=== PATIENT | female | born 1970 | race Caucasian/White ===

== ENCOUNTER → 2016-02-27 | Outpatient (CLI) | payer BC ==
[~2016-02-27] VITALS: Ht 167.6 cm; Wt 67.6 kg
[~2016-02-27] MED LIST: ALPR1TAB2 PO; AMIT10TA6 PO; AMT10T PO; BUPIVACAINE 0.25% 30 ML (SENSORCAINE) VIAL ONE; CHLO1CAP61; CHLO500T4 PO; CPR500T PO; DICY10CA12; ESTR2TAB PO; GABA-486 PO; HYDR-2889 PO; HYDR-34; HYDR12.56 PO; HYDR1CAP2; HYDR2TAB51 GT; HYOS0.1216 PO; HYOS0.378 PO; LEVE750T16; LEVE750T16 PO; LEVE750T5; LEVE750T5 PO; LEVO500T69 PO; LEVO750T6 PO; LIDOCAINE 1% INJ 20 ML (XYLOCAINE) VIAL ONE; LORA-794 PO; LORA0.5T PO; LRT10T; LRT10T PO; MELO7.5T46 PO; METR500T PO; MULT-608 PO; NEBI5TAB8 PO; NITR100C PO; ONDA4TAB11 PO; OXYC-202 PO; OXYC15TA79 PO; POTA-51 PO; PRM50SU PR; TAPE50TA PO; TAPE75TA PO; TRIAMCINOLONE ACET (KENALOG-40) 40 MG/ML 1 ML VIAL ONE; TRM50T PO
--- OUTSIDE RECORDS SUMMARY | 2016-02-27 11:09 | XMS REPORT | Continuity of Care Document ---
Author Author [facility] Organization [facility] Address Unknown Phone Unavailable Care Team Providers Care Film Painter Name Role Phone Johnathon Dewey PCP [phone] Source Comments Some departments are not documenting in the electronic medical record. If you do not see the information that you expected, contact Release of Information in the Health Information Management department at [phone] for further assistance in locating additional records.[facility] Active Allergies and Adverse Reactions Allergen Noted Date Severity Reactions Comments Adhesive Tape-Silicones 02/12/2014 RASH Seasonal Allergies 02/12/2014 EYE IRRITATION, SNEEZING Current Medications Prescription Sig. Disp. Refills Start End Date Status Date levETIRAcetam (KEPPRA) Take 1,500 mg by mouth Active 750 mg tablet twice daily. amitriptyline (ELAVIL) 25 Take 50 mg by mouth at Active mg tablet bedtime daily. nebivolol (BYSTOLIC) 2.5 Take 2.5 mg by mouth Active mg tab tablet daily. nitrofurantoin SR Take 100 mg by mouth Active (MACROBID) 100 mg capsule daily. hydrochlorothiazide Take 12.5 mg by mouth Active (HYDRODIURIL) 12.5 mg tab daily. tablet oxyCODONE (OXY-IR) 15 mg Take 15 mg by mouth every Active tablet 4 hours as needed citalopram (CELEXA) 40 mg Take 40 mg by mouth Active tablet daily. linaclotide (LINZESS) 290 Take by mouth. Active mcg cap ALPRAZolam (XANAX) 1 mg Take 1 mg by mouth at Active tablet bedtime as needed. orphenadrine ER(+) Take 100 mg by mouth Active (NORFLEX) 100 mg tablet twice daily. hyoscyamine (ANASPAZ; Place 125 mcg under Active NULEV; SYMAX FASTABS; tongue every 4 hours as HYOMAX-FT; ED-SPAZ; needed. OSCIMIN) 0.125 mg rapid dissolve tablet DOMPERIDONE (BULK) MISC Use 10 mg as directed. Active Active Problems Problem Noted Date Abdominal pain 02/12/2014 Chronic narcotic use 02/12/2014 H/O meningioma of the brain 02/12/2014 Social History Tobacco Use Types Packs/Day Years Used Date Never Smoker Alcohol Use Drinks/Week oz/Week Comments Yes Last Filed Vital Signs Vital Sign Reading Time Taken Blood Pressure 117/78 02/12/2014 1:15 PM NURSE ANESTHESIA PROGRAM DIRECTOR Pulse 72 02/12/2014 1:15 PM NURSE ANESTHESIA PROGRAM DIRECTOR Temperature 35.9 C (96.7 F) 02/12/2014 1:15 PM NURSE ANESTHESIA PROGRAM DIRECTOR Respiratory Rate 16 02/12/2014 1:15 PM NURSE ANESTHESIA PROGRAM DIRECTOR Height 1.676 m (5' 6") 02/12/2014 1:15 PM NURSE ANESTHESIA PROGRAM DIRECTOR Weight 72.576 kg (160 lb) 02/12/2014 1:15 PM NURSE ANESTHESIA PROGRAM DIRECTOR Body Mass Index 25.84 02/12/2014 1:15 PM NURSE ANESTHESIA PROGRAM DIRECTOR Oxygen Saturation - - Plan of Care Health Maintenance Due Date Last Done Comments Physical (Comprehensive) 04/22/1978 Exam Pertussis Vaccine 04/22/1982 Tetanus Vaccine 04/22/1988 Cervical Cancer Screening 04/22/1992 Influenza Vaccine 10/09/2015 Results from Last 3 Months Not on file
[2016-02-27 11:32] VITALS: BP 121/77
--- NOTE | 2016-02-27 14:03 | Pain Medicine-Procedure ---
Procedure Pre-Op/Post-Op Diagnosis Diagnosis: sacrococcygeal disorder Indications for Operation Hip pain Attending Surgeon Naveen Procedure Date of Service: Feb 27, 2016 Procedure: Flouroscopic guided bilateral sacroiliac joint injection PROCEDURE IN DETAIL: After obtaining informed consent from the patient, the patient's chart was reviewed. The patient was then brought to the procedure room and placed in the prone position. A time out was performed. The back was prepped with antiseptic solution and under fluoroscopic guidance the patient's sacroiliac joint on both sides was identified. Attention was first turned to the right sacroiliac joint injection where 2 mL's of 1% lidocaine was used to anesthetize the skin and then two 22-gauge 3.5 inch spinal needles were inserted and advanced under flouroscopic guidance until they were in the lower 1 /3 of the right sacroiliac joint. Next, attention was then turned to the left sacroiliac joint injection where 2 mL's of 1% lidocaine was used to anesthetize the skin and then two 22-gauge 3.5 inch spinal needles were inserted and advance under flouroscopic guidance until they were in the lower 1/3 of the sacroiliac joint on the left side. After negative aspiration one half male of contrast dye was injected demonstrating good spread throughout the joint on the left and then the same contrast dye was injected on the right, each needle was then injected with 40 mg of Kenalog along with 2 mL's of 0.25% marcaine. All needles were then flushed with 1% lidocaine and then removed. Band-Aids were applied to all the sites and the patient tolerated the procedure well and was taken to the recovery area in stable condition. Complications None ANA MARIA MUNGUIA MD Feb 27, 2016 2:03 pm
== END ==
LOC: CARD 11:06
PROVIDERS: ATTEND Pain Medicine Pain Medicine
DX: M53.3 Sacrococcygeal disorders, not elsewhere classified (principal); Z79.899 Other long term (current) drug therapy
CPT/HCPCS: 27096

== ENCOUNTER 2016-03-15 12:05 | Outpatient (CLI) | payer BC ==
[~2016-03-15] VITALS: Ht 167.6 cm; Wt 65.8 kg
[~2016-03-15 12:05] MED LIST changes: -BUPIVACAINE 0.25% 30 ML (SENSORCAINE) VIAL ONE; -LIDOCAINE 1% INJ 20 ML (XYLOCAINE) VIAL ONE; -TRIAMCINOLONE ACET (KENALOG-40) 40 MG/ML 1 ML VIAL ONE
--- OUTSIDE RECORDS SUMMARY | 2016-03-15 12:10 | XMS REPORT | Continuity of Care Document ---
Author Author [facility] Organization [facility] Address Unknown Phone Unavailable Care Team Providers Care Enforcement Safety Officer Name Role Phone Johnathon Dewey PCP [phone] Source Comments Some departments are not documenting in the electronic medical record. If you do not see the information that you expected, contact Release of Information in the Health Information Management department at [phone] for further assistance in locating additional records.[facility] Active Allergies and Adverse Reactions Allergen [...] Taken Blood Pressure 117/78 02/12/2014 1:15 PM MACHINE FEED OPERATOR Pulse 72 02/12/2014 1:15 PM MACHINE FEED OPERATOR Temperature 35.9 C (96.7 F) 02/12/2014 1:15 PM MACHINE FEED OPERATOR Respiratory Rate 16 02/12/2014 1:15 PM MACHINE FEED OPERATOR Height 1.676 m (5' 6") 02/12/2014 1:15 PM MACHINE FEED OPERATOR Weight 72.576 kg (160 lb) 02/12/2014 1:15 PM MACHINE FEED OPERATOR Body Mass Index 25.84 02/12/2014 1:15 PM MACHINE FEED OPERATOR Oxygen Saturation - - Plan of Care Health Maintenance Due Date Last Done Comments Physical (Comprehensive) 04/22/1978 Exam Pertussis Vaccine 04/22/1982 Tetanus Vaccine 04/22/1988 Cervical Cancer Screening 04/22/1992 Influenza Vaccine 10/09/2015 Results from Last 3 Months Not on file
[2016-03-15] MEDS ORDERED: BUPIVACAINE 0.25% 30 ML (SENSORCAINE) VIAL ONE (12:13)
[2016-03-15] MEDS ORDERED: TRIAMCINOLONE ACET (KENALOG-40) 40 MG/ML 1 ML VIAL ONE (12:13)
[2016-03-15] MEDS ORDERED: LIDOCAINE 1% INJ 20 ML (XYLOCAINE) VIAL ONE (12:14)
[2016-03-15 12:23] VITALS: BP 134/99
[2016-03-15 12:42] VITALS: BP 135/96
--- NOTE | 2016-03-15 14:19 | Pain Medicine-Procedure ---
Procedure Pre-Op/Post-Op Diagnosis Diagnosis: sacrococcygeal disorder Indications for Operation Hip pain Attending Surgeon Naveen Procedure Date of Service: Mar 15, 2016 Procedure: Flouroscopic guided right sacroiliac joint injection PROCEDURE IN DETAIL: After obtaining informed consent from the patient, the patient's chart was reviewed. The patient was then brought to the procedure room and placed in the prone position. A time out was performed. The back was prepped with antiseptic solution and under fluoroscopic guidance the patient's sacroiliac joint on the right side was identified. Right sacroiliac joint was identified with fluoroscopic guidance and 2 mL's of 1% lidocaine was used to anesthestize the skin and then one 22-gauge 3.5 inch spinal needle was inserted and advance under flouroscopic guidance until it was in the posterior inferior 1 /3 of the sacroiliac joint on the right side. After negative aspiration, needle was injected with 80 mg of Kenalog along with 2 mL's of 0.25% marcaine. Needle was then flushed with 1% lidocaine and then removed. Band-Aids were applied to all the sites and the patient tolerated the procedure well and was taken to the recovery area in stable condition. Complications None ANA MARIA MUNGUIA MD Mar 15, 2016 2:18 pm
== END 2016-03-15 12:43 | disposition home or self-care (01) ==
LOC: CARD 12:05
PROVIDERS: ATTEND Pain Medicine Pain Medicine
DX: M53.3 Sacrococcygeal disorders, not elsewhere classified (principal); Z79.899 Other long term (current) drug therapy; M50.13 Cervical disc disorder with radiculopathy, cervicothoracic region
CPT/HCPCS: 27096

== ENCOUNTER → 2016-04-05 | Outpatient (CLI) | payer BC ==
--- OUTSIDE RECORDS SUMMARY | 2016-04-05 09:11 | XMS REPORT | Continuity of Care Document ---
Author Author [facility] Organization [facility] Address Unknown Phone Unavailable Care Team Providers Care Cloth Carrier Name Role Phone Johnathon Dewey PCP [phone] Source Comments Some departments are not documenting in the electronic medical record. If you do not see the information that you expected, contact Release of Information in the Health Information Management department at [phone] for further assistance in locating additional records.[facility] Active Allergies and Adverse Reactions Allergen [...] Taken Blood Pressure 117/78 02/12/2014 1:15 PM STITCHDOWN TOE FORMER Pulse 72 02/12/2014 1:15 PM STITCHDOWN TOE FORMER Temperature 35.9 C (96.7 F) 02/12/2014 1:15 PM STITCHDOWN TOE FORMER Respiratory Rate 16 02/12/2014 1:15 PM STITCHDOWN TOE FORMER Height 1.676 m (5' 6") 02/12/2014 1:15 PM STITCHDOWN TOE FORMER Weight 72.576 kg (160 lb) 02/12/2014 1:15 PM STITCHDOWN TOE FORMER Body Mass Index 25.84 02/12/2014 1:15 PM STITCHDOWN TOE FORMER Oxygen Saturation - - Plan of Care Health Maintenance Due Date Last Done Comments Physical (Comprehensive) 04/22/1978 Exam Pertussis Vaccine 04/22/1982 Tetanus Vaccine 04/22/1988 Cervical Cancer Screening 04/22/1992 Influenza Vaccine 10/09/2015 Results from Last 3 Months Not on file
--- NOTE | 2016-04-05 11:07 | Diagnostic Imaging Report ---
2 views of the right hip. INDICATION: Right hip pain. FINDINGS: There is minimal subchondral sclerosis in the outer aspect of the right acetabulum. No joint space narrowing. The ipsilateral right SI joint demonstrates minimal degenerative sclerosis. No fracture, dislocation, or radiopaque foreign body. IMPRESSION: Minimal degenerative changes. Dictated by: Dictated on workstation # [id number]
== END ==
LOC: RAD 09:03
PROVIDERS: ATTEND Pain Medicine Pain Medicine
DX: M25.551 Pain in right hip (principal)
CPT/HCPCS: 73502

== ENCOUNTER 2016-07-03 15:37 | Emergency (ER) | payer BC ==
[~2016-07-03] VITALS: Ht 167.6 cm; Wt 61.2 kg
--- NOTE | 2016-07-03 16:46 | ED EENT ---
History of Present Illness General Chief Complaint: Oral/Throat Problems Stated Complaint: MOUTH BLEEDING Nursing Triage Note: POST OP ORAL BLEEDING Source: patient Exam Limitations: no limitations History of Present Illness Time seen by provider: 16:46 Allergies and Home Medications Allergies Coded Allergies: No Known Drug Allergies (Verified , 02/27/09) Home Medications Alprazolam 1 Mg Tablet, 1 MG PO BID PRN for ANXIETY, (Reported) Chlorzoxazone 500 Mg Tablet, 500 MG PO TID, (Reported) Estradiol 2 Mg Tablet, 2 MG PO DAILY, #90 Ref 3 Prescribed by: PINO MOTA on 12/26/15 1316 Gabapentin 100 Mg Capsule, 200 MG PO TID, (Reported) take 2 (100MG) TAB Hydrochlorothiazide 12.5 Mg Tablet, 25 MG PO DAILY, (Reported) take 2 (12.5mg) tabs Levetiracetam 750 Mg Tablet, 1,500 MG PO BID, (Reported) take 2 (750mg) tabs Meloxicam 7.5 Mg Tablet, 7.5 MG PO BID, (Reported) Nebivolol HCl 5 Mg Tablet, 2.5 MG PO DAILY, (Reported) take 1/2 of 5mg tab Nitrofurantoin Macrocrystal 100 Mg Capsule, 100 MG PO DAILY, (Reported) Potassium Chloride 20 Meq Tablet.er, 20 MEQ PO M.W.F., (Reported) TAKE 3 TIMES A WEEK Past Risieix-Qdvesf-Wegayw Hx Patient Social History Alcohol Use: Denies Use Recreational Drug Use: No Smoking Status: Never a Smoker 2nd Hand Smoke Exposure: No Recent Foreign Travel: No Contact w/Someone Who Travel: No Recent Infectious Disease Expo: No Recent Hopitalizations: No Immunizations Up To Date Tetanus Booster (TDap): Unknown Date of Pneumonia Vaccine: Mar 10, 2007 Date of Influenza Vaccine: Oct 24, 2015 Seasonal Allergies Seasonal Allergies: Yes Surgeries HX Surgeries: Yes (c/s x2, partial hyst, hernia repair, Left wrist fx, brain tumor removed) Surgeries: Section, Gallbladder, Hysterectomy Respiratory Hx Respiratory Disorders: No Cardiovascular Hx Cardiac Disorders: Yes Cardiac Disorders: Hypertension Neurological Hx Neurological Disorders: Yes Neurological Disorders: Brain Tumor, Seizure Disorder Reproductive System : No Hx Reproductive Disorders: Yes FAMILY MEDICINE CHAIR History: Hysterectomy Genitourinary Hx Genitourinary Disorders: No Gastrointestinal Hx Gastrointestinal Disorders: No Musculoskeletal Hx Musculoskeletal Disorders: Yes Musculoskeletal Disorders: Arthritis Endocrine Hx Endocrine Disorders: No HEENT HX ENT Disorders: No Cancer Hx Cancer: Yes Cancer: Brain Psychosocial Hx Psychiatric Problems: Yes Behavioral Health Disorders: Depression Integumentary HX Skin/Integumentary Disorder: No Blood Transfusions Hx Blood Disorders: Yes (hx of anemia) Physical Exam Vital Signs Vital Sign - Last 12Hours 07/03/16 16:00 Temp 97.8 Pulse 71 Resp 18 B/P (MAP) 133/91 Pulse Ox 97 O2 Delivery Room Air Progress/Results/Core Measures Results/Orders Vital Signs/I&O Vital Sign - Last 12Hours 07/03/16 16:00 Temp 97.8 Pulse 71 Resp 18 B/P (MAP) 133/91 Pulse Ox 97 O2 Delivery Room Air Blood Pressure Mean: 105 Departure Impression Impression: Primary Impression: Hematoma Additional Impression: Adverse drug effect Disposition: 01 HOME, SELF-CARE Condition: Improved Departure-Patient Inst. Decision time for Depature: 16:57 Referrals: CHANDAN SAM MD (PCP/Family) Primary Care Physician Patient Instructions: HEMATOMA, Nonsteroidal Antiinflammatory Drugs (NSAIDs) Add. Discharge Instructions: All discharge instructions reviewed with patient and/or family. Voiced understanding. Medications as instructed. No ibuprofen, Aleve, aspirin, or Voltaren. Continue orders as instructed by your oral surgeon. Hold pressure and/or Swish and spit ice cold water for recurrent bleeding. Soft diet. Follow-up with your oral surgeon early this week for recheck, call first thing Tuesday for appointment time. Return to the emergency department immediately for worsened pain, bleeding, swelling, difficulty swallowing, difficulty breathing, or any other concerns. Scripts Ondansetron (Ondansetron Odt) 8 Mg Tab.rapdis 8 MG PO Q6H Y for NAUSEA/VOMITING-1ST LINE, #10 TAB 0 Refills Prov: ROBERTO BAZAN 07/03/16 Oxycodone HCl/Acetaminophen (Oxycodone-Acetaminophen 5-325) 1 Each Tablet 1 EACH PO Q6H Y for pain, #20 TAB 0 Refills Prov: ROBERTO BAZAN 07/03/16 ROBERTO BAZAN July 03, 2016 16:46
[2016-07-03] MEDS ORDERED: OXYC-471 PO (16:59)
[2016-07-03] MEDS ORDERED: ONDA8TAB13 PO (16:59)
[2016-07-03 17:09] VITALS: BP 133/91
== END 2016-07-03 17:07 | disposition home or self-care (01) ==
LOC: EDUNIT# 15:37 → ER 15:39
DX: L76.22 Postprocedural hemorrhage of skin and subcutaneous tissue following other procedure (principal); Z98.890 Other specified postprocedural states
CPT/HCPCS: 99282

== ENCOUNTER → 2017-01-06 | Outpatient (CLI) | payer BC ==
[~2017-01-06] MED LIST changes: +ONDA8TAB13 PO; +OXYC-471 PO
--- NOTE | 2017-01-07 11:42 | Diagnostic Imaging Report ---
Bilateral screening mammogram 2D views with tomosynthesis The current study was also evaluated with a Computer Aided Detection (CAD) system. INDICATION: Screening. No current complaints stated on the questionnaire. COMPARISON: 01/06/2016. FINDINGS: The breasts are composed of heterogeneously dense parenchyma which may decrease mammographic sensitivity. No mass, architectural distortion or suspicious cluster of calcification is seen. Allowing for technique and positional differences, no suspicious change is seen. IMPRESSION: No significant change. ACR BI-RADS Category 2: Benign findings. Result letter will be mailed to the patient. Note: At least 10% of breast cancer is not imaged by mammography. Dictated by: Dictated on workstation # [id number]
== END ==
LOC: RAD 08:58
PROVIDERS: ATTEND Obstetrics & Gynecology
DX: Z12.31 Encounter for screening mammogram for malignant neoplasm of breast (principal)
CPT/HCPCS: 77067

== ENCOUNTER → 2017-01-11 | Outpatient (CLI) | payer BC ==
[~2017-01-11] MED LIST changes: +GADOBUTROL 7.5 MMOL/7.5 ML (GADAVIST) VIAL IV ONE
--- NOTE | 2017-01-11 11:03 | Diagnostic Imaging Report ---
PROCEDURE: MR imaging of the brain with and without contrast. TECHNIQUE: Multiplanar/multisequence MR imaging of the brain was performed with and without contrast. INDICATION: History of meningioma resection. COMPARISON: 01/27/2015. CONTRAST: 5 mL of Gadovist was administered intravenously. FINDINGS: There are artifacts distorting portions of the pwmko-hd-puyk, particularly in the gradient echo sequences, anteriorly related to braces and posteriorly related to craniotomy fixation hardware. There is no diffusion restriction evident in the visualized portions of the brain on the diffusion sequence which is largely limited anteriorly. Again seen is the resection cavity in the medial posterior right parietal region, similar to the 01/27/2015 exam, with a surrounding area of encephalomalacia noted. This is not associated with significant change from the previous study. There is no enhancing mass within the brain or extra-axial space demonstrated on the postcontrast images. The pituitary gland is normal in size. No hypothalamic or pineal region mass. The central vascular flow-voids appear grossly unremarkable. The internal auditory canals appear unremarkable. IMPRESSION: A posterior left parietal resection cavity is seen with chronic adjacent encephalomalacia noted. No evidence of tumor recurrence or enhancing mass. Dictated by: Dictated on workstation # [id number]
== END ==
LOC: RAD 07:58
PROVIDERS: ATTEND Specialist
DX: Z09 Encounter for follow-up examination after completed treatment for conditions other than malignant neoplasm (principal); Z86.018 Personal history of other benign neoplasm; R56.9 Unspecified convulsions
CPT/HCPCS: 70553

== ENCOUNTER → 2018-03-08 | Outpatient (CLI) | payer BC ==
[~2018-03-08] MED LIST changes: -GADOBUTROL 7.5 MMOL/7.5 ML (GADAVIST) VIAL IV ONE; -OXYC-202 PO; +OXYC1TAB12 PO
--- NOTE | 2018-03-08 19:12 | Diagnostic Imaging Report ---
INDICATION: Screening. EXAMINATION: Digital mammogram bilateral screening with 3-D tomosynthesis. This study was compared to prior exams of 01/06/2017, 01/06/2016 and 01/01/2015. At this time, there are no current complaints. The current study was also evaluated with a Computer Aided Detection (CAD) system. FINDINGS: The fibroglandular tissue in both breasts is heterogeneously dense. This does limit the sensitivity of this exam. Overall, there does not appear to have been any significant change when compared to the prior study. No primary or secondary sign of malignancy is noted. IMPRESSION: There is no radiographic evidence for malignancy. ACR BI-RADS Category 1: Negative. Result letter will be mailed to the patient. Note: At least 10% of breast cancer is not imaged by mammography. Dictated on workstation # [id number]
== END ==
LOC: RAD 07:41
PROVIDERS: ATTEND Obstetrics & Gynecology
DX: Z12.31 Encounter for screening mammogram for malignant neoplasm of breast (principal)
CPT/HCPCS: 77067

== ENCOUNTER 2018-05-04 11:14 | Outpatient (RCR) | payer BC | END 2018-05-04 12:29 | disposition home or self-care (01) | PROVIDERS: ATTEND Nurse Practitioner Family | DX: M54.2 Cervicalgia (principal); M54.5 Low back pain ==

== ENCOUNTER → 2018-11-21 | Outpatient (CLI) | payer BC ==
[~2018-11-21] MED LIST changes: +GADOBUTROL 7.5 MMOL/7.5 ML (GADAVIST) VIAL IV ONE
--- NOTE | 2018-11-21 09:41 | Diagnostic Imaging Report ---
PROCEDURE: MR imaging of the brain with and without contrast. TECHNIQUE: Multiplanar, multisequence MR imaging of the brain was performed with and without contrast. INDICATION: Meningioma. Seizures. COMPARISON: MRI brain without and with IV contrast, 01/11/2017. FINDINGS: Again seen are postoperative findings of a left parietal convexity craniotomy and large resection bed in the left parietal lobe. There is stable adjacent gliosis about this resection bed with no abnormal enhancement. There are mild additional nonspecific T2 hyperintensities in the supratentorial white matter which are stable. No abnormal intracranial enhancement. No restricted water diffusion or hemosiderin deposition. Normal morphology including the major midline structures, posterior fossa and cerebellar pontine angle. Partially empty sella. The orbits are negative on this nondedicated exam. Normal intracranial flow voids. No hydrocephalus. No extra-axial fluid collections. The paranasal sinuses and mastoids are clear. IMPRESSION: Stable postoperative findings in the left parietal lobe. No acute intracranial MRI findings. No abnormal intracranial enhancement. Dictated by: Dictated on workstation # [id number]
== END ==
LOC: RAD 08:05
PROVIDERS: ATTEND Specialist
DX: D32.9 Benign neoplasm of meninges, unspecified (principal); Z98.890 Other specified postprocedural states
CPT/HCPCS: 70553

== ENCOUNTER → 2019-03-09 | Outpatient (CLI) | payer BC ==
[~2019-03-09] MED LIST changes: -GADOBUTROL 7.5 MMOL/7.5 ML (GADAVIST) VIAL IV ONE
--- NOTE | 2019-03-09 15:21 | Diagnostic Imaging Report ---
INDICATION: Routine screening. COMPARISON: Comparison is made with prior mammograms from 03/08/2018 and 01/06/2017. TECHNIQUE: 2-D and 3-D bilateral screening mammography was performed. The current study was also evaluated with a Computer Aided Detection (CAD) system. 3-D tomosynthesis was also performed and reviewed. FINDINGS: Scattered fibroglandular densities are identified bilaterally. The parenchymal pattern is stable. No mass or malignant-appearing microcalcifications are seen. Axillae are unremarkable. IMPRESSION: No mammographic features suspicious for malignancy are identified. ACR BI-RADS Category 1: Negative. Result letter will be mailed to the patient. Note: At least 10% of breast cancer is not imaged by mammography. Dictated by: Dictated on workstation # [id number]
== END ==
LOC: RAD 07:16
PROVIDERS: ATTEND Obstetrics & Gynecology
DX: Z12.31 Encounter for screening mammogram for malignant neoplasm of breast (principal)
CPT/HCPCS: 77067

== ENCOUNTER → 2020-04-03 | Outpatient (CLI) | payer BC ==
[~2020-04-03] MED LIST changes: -OXYC-471 PO; +OXYC-525 PO; -OXYC15TA79 PO; +OXYC1TAB11 PO
--- NOTE | 2020-04-03 17:15 | Diagnostic Imaging Report ---
INDICATION: Routine screening. COMPARISON is made with prior mammograms of 03/09/2019 and 03/08/2018. 2-D and 3-D bilateral screening mammography was performed with CAD. Both breasts are heterogeneously dense, limiting the sensitivity of mammography. No mass or malignant-appearing microcalcifications are seen. Axillae are unremarkable. IMPRESSION: BI-RADS Category 1 No mammographic features suspicious for malignancy are identified. ACR BI-RADS Category 1: Negative. Result letter will be mailed to the patient. Note: At least 10% of breast cancer is not imaged by mammography. Dictated by: Dictated on workstation # [id number]
== END ==
LOC: RAD 11:27
PROVIDERS: ATTEND Obstetrics & Gynecology
DX: Z12.31 Encounter for screening mammogram for malignant neoplasm of breast (principal)
CPT/HCPCS: 77063; 77067

== ENCOUNTER → 2020-11-18 | Outpatient (CLI) | payer BC ==
[~2020-11-18] MED LIST changes: +GADOBUTROL 15 MMOL/15 ML (GADAVIST) VIAL IV ONE
--- NOTE | 2020-11-18 11:06 | Diagnostic Imaging Report ---
CLINICAL INDICATION: Patient with history of malignant meningioma in her brain. Patient has history of surgery in 2004. Two-year recheck. EXAM: MRI of the brain performed without and with 6 cc of Gadavist IV contrast. Sequences include axial DWI, ADC map, coronal gradient echo, axial T2, axial FLAIR, axial T1, axial T1 post IV contrast, coronal T1 fat-sat post IV contrast, and sagittal T1 post IV contrast. COMPARISON: MRI of the brain with and without contrast dated 11/21/2018. FINDINGS: There is no significant change to the postop changes with craniotomy involving the posterior left side of the skull near the vertex. There are stable parenchymal resection changes of the left parietal lobe with adjacent gliosis. There is no evidence of developing mass or abnormal masslike IV contrast enhancement. The remainder of the brain parenchyma is stable. There are stable focal patchy areas of high T2 signal white matter changes involving both cerebral hemispheres. The brain parenchymal volume appears appropriate for patient's age besides postoperative changes. Stable small cystic area in the high posterior right frontal parasagittal region with adjacent gliosis. The [place] vascular structures show no gross abnormality as visualized. The pituitary gland, sella, and suprasellar regions are unremarkable as visualized. Basal cisterns are unremarkable. Besides postoperative changes, the extracranial soft tissues, skull, and orbits are unremarkable. Paranasal sinuses are clear. Mastoid air cells are clear. IMPRESSION: 1: Stable postop changes with resection changes of the left parietal region. There is no evidence of tumor recurrence or abnormal IV contrast enhancement. 2: The remainder of this exam shows no significant interval change compared to the prior study of comparison. Dictated by: Dictated on workstation # [id number]
== END ==
LOC: RAD 08:13
PROVIDERS: ATTEND Specialist
DX: Z85.841 Personal history of malignant neoplasm of brain (principal)
CPT/HCPCS: 70553

== ENCOUNTER → 2021-04-24 | Outpatient (CLI) | payer BC ==
[~2021-04-24] MED LIST changes: -ESTR2TAB PO; +ESTR2TAB3 PO; -GADOBUTROL 15 MMOL/15 ML (GADAVIST) VIAL IV ONE
--- NOTE | 2021-04-24 11:03 | Diagnostic Imaging Report ---
INDICATION: Routine screening. COMPARISON: 04/03/2020 and 03/09/2019. TECHNIQUE: 2D and 3D bilateral screening mammography was performed with CAD. FINDINGS: Both breasts remain heterogeneously dense, limiting the sensitivity of mammography. The parenchymal pattern is stable. No mass or malignant-appearing microcalcifications are seen. The axillae are unremarkable. IMPRESSION: No mammographic features suspicious for malignancy are identified. ACR BI-RADS Category 1: Negative. Result letter will be mailed to the patient. Note: At least 10% of breast cancer is not imaged by mammography. Dictated by: Dictated on workstation # [id number]
== END ==
LOC: RAD 09:15
PROVIDERS: ATTEND Obstetrics & Gynecology
DX: Z12.31 Encounter for screening mammogram for malignant neoplasm of breast (principal)
CPT/HCPCS: 77063; 77067

== ENCOUNTER → 2022-04-20 | Outpatient (CLI) | payer BC ==
--- NOTE | 2022-04-20 15:04 | Diagnostic Imaging Report ---
INDICATION: Routine screening. COMPARISON: 04/24/2021 and 04/03/2020. TECHNIQUE: 2D and 3D bilateral screening mammography was performed with CAD. FINDINGS: Both breasts are heterogeneously dense, limiting the sensitivity of mammography. The parenchymal pattern is stable. No mass or malignant-appearing microcalcifications are seen. The axillae are unremarkable. IMPRESSION: No mammographic features suspicious for malignancy are identified. ACR BI-RADS Category 1: Negative. Result letter will be mailed to the patient. Note: At least 10% of breast cancer is not imaged by mammography. Dictated by: Dictated on workstation # [id number]
== END ==
LOC: RAD 08:00
PROVIDERS: ATTEND Nurse Practitioner Women's Health
DX: Z12.31 Encounter for screening mammogram for malignant neoplasm of breast (principal)
CPT/HCPCS: 77063; 77067

== ENCOUNTER 2022-05-12 05:39 | Outpatient (CLI) | payer BC ==
[~2022-05-12] VITALS: Ht 167.7 cm; Wt 60.0 kg
[2022-05-18] MEDS ORDERED: LATA2.5D19 OU (12:14)
[2022-05-18] MEDS ORDERED: HYDR25TA4 PO (12:14)
[2022-05-18] MEDS ORDERED: MONT-40 PO (12:14)
[2022-05-18] MEDS ORDERED: ESTR2TAB3 PO (12:14)
[2022-05-18] MEDS ORDERED: LEVE500T6 PO (12:14)
[2022-05-18] MEDS ORDERED: MULT-351 PO (12:14)
== END 2022-05-18 12:15 | disposition home or self-care (01) ==
LOC: PREOP 05:39
PROVIDERS: ATTEND Internal Medicine
DX: Z01.818 Encounter for other preprocedural examination (principal); Z12.11 Encounter for screening for malignant neoplasm of colon; Z12.31 Encounter for screening mammogram for malignant neoplasm of breast

== ENCOUNTER 2022-05-21 07:18 | Day surgery (SDC) | payer BC ==
[~2022-05-21] VITALS: Ht 167.7 cm; Wt 60.0 kg
[~2022-05-21 07:18] MED LIST changes: +HYDR25TA4 PO; +LATA2.5D19 OU; +LEVE500T6 PO; +MONT-40 PO; +MULT-351 PO
[2022-05-21] MEDS ORDERED: LACTATED RINGERS 1,000 ML IV STA (07:38)
[2022-05-21] MEDS ORDERED: MIDAZOLAM 2 MG/2 ML (VERSED) VIAL ONE (07:40)
[2022-05-21] MEDS ORDERED: PROPOFOL INJECTION 50 ML IV ONE ×2 (07:40→08:47)
[2022-05-21 07:46] VITALS: BP 144/89
--- NOTE | 2022-05-21 08:05 | Pre-Op Note & Conscious Sedat ---
Pre-Operative Progress Note Date H&P Reviewed: May 21, 2022 Time H&P Reviewed: 08:04 History & Physical: H&P Reviewed, Patient Examed, No changes noted Pre-Op Diagnosis: screening Moderate Sedation PreProcedure ASA Score 2 Airway Lungs Heart ASA score ASA 1: a normal healthy patient ASA 2: a patient with a mild systemic disease (mid diabetes, controlled hypertension, obesity ASA 3: a patient with a severe systemic disease that limits activity (angina, COPD, prior Myocardial infarction) ASA 4: a patient with an incapacitating disease that is a constant threat to life (CHF, renal failure) ASA 5: a moribund patient not expected to survive 24 hrs. (ruptured aneurysm) ASA 6: a declared brain- patient whose organs are being harvested. For emergent operations, add the letter E after the classification Mallampati Classification Grade 2 Sedation Plan Analgesia, Amnesia, Plan communicated to team members, Discussed options with patient/fam, Discussed risks with patient/fam The patient is an appropriate candidate to undergo the planned procedure, sedation, and anesthesia. The patient immediately re-assessed prior to indication. SYD JUÁREZ MD May 21, 2022 08:05
[2022-05-21 09:12] VITALS: BP 154/91
--- NOTE | 2022-05-21 09:12 | Progress Note-Post Operative ---
Post-Procedure Note Physician (s)/Door Repairer Bus (s) Physician SYD JUÁREZ MD Pre-Procedure Diagnosis Pre-Procedure Diagnosis: screening Post-Procedure Diagnosis Post-operative diagnosis: Prior to undergoing colonoscopy digital rectal evaluation was performed. Anal suture tone was normal and the perianal reflexes intact. No abnormalities noted on digital inspection of the anal canal or distal rectal vault. The colonoscope was then inserted into the rectum and under direct visualization advanced to the cecum. The cecum was identified by identification of the ileocecal valve and cecal strap. Photographic documentation was obtained and a careful inspection was made as the colonoscope was withdrawn. Quality the prep was fair. Findings: There are no evidence for internal/external hemorrhoids in the rectum sigmoid colon descending colon splenic flexure transverse colon hepatic flexure ascending colon and cecum were unremarkable with no evidence for neoplasia or diverticular disease. Assessment: Normal colonoscopy to the cecum would advocate consideration for repeat screening colonoscopy in 10 years. CC: Dr. No SAM MD. SYD JUÁREZ MD May 21, 2022 09:12
[2022-05-21 09:20] VITALS: BP 148/78
[2022-05-21 09:54] VITALS: BP 148/78
--- NOTE | 2022-05-21 10:21 | Anesthesia-General Post-Op ---
MAC Patient Condition Mental Status/LOC: Same as Preop Cardiovascular: Satisfactory Nausea/Vomiting: Absent Respiratory: Satisfactory Pain: Controlled Complications: Absent Post Op Complications Complications None Follow Up Care/Instructions Patient Instructions None needed. Anesthesiology Discharge Order Discharge Order Patient is doing well, no complaints, stable vital signs, no apparent adverse anesthesia problems. No complications reported per nursing. JOANIE JIMENEZ CRNA May 21, 2022 10:21
--- NOTE | 2022-05-25 11:15 | HISTORY AND PHYSICAL ---
COLONOSCOPY HISTORY AND PHYSICAL HISTORY OF PRESENT ILLNESS: The patient is a 53-year-old white female, referred by Dr. Dewey for screening colonoscopy. She is deemed to be of average risk because she is not aware of any family history for colon cancer or colon polyps. She denies bright red blood per rectum, change in bowel habits, melena or abdominal pain. She is being seen preoperatively as she does have history of hypertension as well as at the age of 34, she was diagnosed with a malignant meningioma of the brain that required surgical removal as well as radiation therapy. Other than headache pain that she attributes to cervical plate, I mean to cranial plates required for closure, she has had no other neurologic side effects per her report. She reports her hypertension is under good control. There is no other significant past medical history. PAST SURGICAL HISTORY: Other than her craniotomy, it is pertinent for an appendectomy, performed in 2015. She had cholecystectomy in 2005, C-sections x2 in 2000 and 2001, hysterectomy and salpingo-oophorectomy done at separate times and surgical hernia repair. No surgeries in the last 7 years. SOCIAL HISTORY: She is , employed, working at [employer]. No past smoking history. Rare small volume alcohol consumption. REVIEW OF SYSTEMS: CONSTITUTIONAL: Denies night sweats, chills, fever or change in weight. CARDIOVASCULAR: Denies chest pain or pressure, dyspnea or exercise intolerance. RESPIRATORY: Denies cough, wheezing or shortness of breath. GASTROINTESTINAL: As noted in the HPI. PHYSICAL EXAMINATION: GENERAL: Reveals a pleasant white female, with normal weight, in no acute distress. HEENT: Unremarkable. Sclerae nonicteric. VITAL SIGNS: Weight 132 pounds, Blood pressure 130/92. CHEST: Clear to auscultation. CARDIOVASCULAR: Reveals a regular rate and rhythm without murmur, S3, or S4. ABDOMEN: Soft, supple without mass, organomegaly, or tenderness. EXTREMITIES: Reveal no cyanosis, clubbing or edema. ASSESSMENT AND PLAN: The patient is being set up for screening colonoscopy with no contraindications to proceeding with planned procedure. Prep instructions were given. The electronic medical record was reviewed and questions were answered. I thank you for the referral of this pleasant lady. Job ID: [id number] DocumentID: [id number] Dictated Date: 04/27/2022 10:22:47 Document Scanner Date: 04/27/2022 11:11:00 Dictated By: SYD JUÁREZ MD
== END 2022-05-21 09:49 | disposition home or self-care (01) ==
LOC: ENDO 07:18
PROVIDERS: ATTEND Internal Medicine
DX: Z12.11 Encounter for screening for malignant neoplasm of colon (principal); I10 Essential (primary) hypertension; Z79.899 Other long term (current) drug therapy